=== PATIENT | female | born 1955 | race American Indian/Alaskan Native ===

== ENCOUNTER 2018-05-03 12:58 | Outpatient (CLI) | payer MEDICAID ==
--- NOTE | 2018-05-03 14:54 | Mammography Report ---
LEFT DIGITAL DIAGNOSTIC MAMMOGRAM with CAD and LEFT BREAST ULTRASOUND: 05/03/18 12:58:00 CLINICAL: Left breast cancer status post chemotherapy. COMPARISON:12/03/17 FINDINGS: The breast is mostly fatty with a few scattered fibroglandular densities. The known cancer is an irregular spiculated lower inner mass with the biopsy clip the mass measures approximately 2.0 x 1.5 x 2.1 cm on the mammogram. He scattered benign calcifications.No mass, architectural distortion or suspicious calcifications. Ultrasound of the lower inner left breast was performed and demonstrated an irregular solid hypoechoic mass at 7 o'clock 7 cm from the nipple. It measures approximately 1.2 x 0.9 x 1.4 cm. It is smaller and more isoechoic than on the previous exam. Ultrasound of the left axilla demonstrated no suspicious lymph nodes. IMPRESSION: Known left breast cancer with partial response to chemotherapy. BI-RADS CATEGORY: 6 -- Known Cancer ACR BI-RADS MAMMOGRAPHIC CODES: 0 = Needs additional imaging evaluation; 1 = Negative; 2 = Benign; 3 = Probably benign; 4 = Suspicious; 5 = Malignant; 6 = Known biopsy-proven malignancy COMMENT: 1. Dense breast tissue, i.e., adenosis, fibrocystic changes, etc., may obscure an underlying neoplasm. 2. Approximately 10% of cancers are not detected with mammography. 3. A negative mammography report should not delay biopsy if a clinically suspicious mass is present. COMMENT: Patient follow-up letters are generated by our [employer] application.
== END 2018-05-03 12:59 | disposition home or self-care (01) ==
LOC: SPVWC 12:58
PROVIDERS: ATTEND Surgery
DX: C50.912 Malignant neoplasm of unspecified site of left female breast (principal); E66.9 Obesity, unspecified; Z90.710 Acquired absence of both cervix and uterus

== ENCOUNTER 2018-05-18 06:13 | Day surgery (SDC) | payer MEDICAID ==
[~2018-05-18 06:13] MED LIST: ANCEF/STERILE WATER 2 GM/20 ML 2 GM/20 ML SYRINGE IV NR; LACTATED RINGERS 1,000 ML IV SCH; NEURONTIN PO NR; SUBLIMAZE IV PRN
[2018-05-18] MEDS ORDERED: NACL BACTERIOSTATIC INFILTRATI ONE (06:29)
[2018-05-18] MEDS ORDERED: ZEMURON IV ONE (06:56)
[2018-05-18] MEDS ORDERED: XYLOCAINE MPF 2% ONE (06:56)
[2018-05-18] MEDS ORDERED: SUBLIMAZE ONE ×3 (06:57→11:29)
[2018-05-18] MEDS ORDERED: DIPRIVAN 10 MG/ML IV ONE ×2 (06:57→10:28)
[2018-05-18] MEDS ORDERED: DECADRON ONE ×3 (07:21→13:16)
[2018-05-18] MEDS ORDERED: MARCAINE 0.5% INFILTRATI ONE (07:22)
[2018-05-18] MEDS ORDERED: NACL P/F VIAL (10 ML) 10 ML ONE (07:27)
[2018-05-18] MEDS ORDERED: METHYLENE BLUE ONE (07:27)
[2018-05-18 07:31] LABS: Basophils # (Auto) 0.1 K/mm3 (0.0-0.1); Basophils % (Auto) 1.7 % (0.0-1.8); Eosinophils # (Auto) 0.2 K/mm3 (0.0-0.4); Eosinophils % (Auto) 3.7 % (0.0-4.3); Hematocrit 32.3 % (30.3-42.9); Hemoglobin 10.5 gm/dl (10.1-14.3); Mean Corpuscular HGB Conc 33 % (30-34); Mean Corpuscular Volume 86 fl (79-97); Monocytes # (Auto) 0.7 K/mm3 (0.0-0.8); Monocytes % (Auto) 10.7 % (0.0-7.3); Platelet Count 234 K/mm3 (140-440); Red Blood Count 3.78 M/mm3 (3.65-5.03); Red Cell Distribution Width 19.2 % (13.2-15.2)
[2018-05-18] MEDS ORDERED: XYLOCAINE 1% 20 mL ONE (07:38)
--- NOTE | 2018-05-18 07:45 | Anesthesia Day of Surgery ---
Anesthesia Day of Surgery - Day of Surgery Patient Examined: Yes Patient H&P Reviewed: Yes Patient is NPO: Yes
--- NOTE | 2018-05-18 07:45 | Anesthesia Consultation ---
Anesthesia Consult and Med Hx Date of service: 05/18/18 - Airway Anesthetic Teeth Evaluation: Poor (denies loose teeth) ROM Head & Neck: Adequate Mental/Hyoid Distance: Adequate Mallampati Class: Class I Intubation Access Assessment: Possibly Difficult (previous easy LMA 4) - Pulmonary Exam CTA: Yes - Cardiac Exam Cardiac Exam: RRR - Pre-Operative Health Status ASA Pre-Surgery Classification: ASA3 Proposed Anesthetic Plan: General Nerve Block: PEC - Pulmonary Hx Smoking: No Hx Asthma: No Hx Respiratory Symptoms: No - Cardiovascular System Hx Hypertension: Yes (recent diagnosis; takes HCTZ prn.) Hx Heart Attack/AMI: No Hx Percutaneous Transluminal Coronary Angioplasty (PTCA): No Hx Cardia Arrhythmia: No - Central Nervous System Hx Seizures: No CVA: No Hx Psychiatric Problems: No - Gastrointestinal Hx Gastroesophageal Reflux Disease: No - Endocrine Hx Renal Disease: No Hx Liver Disease: No Hx Insulin Dependent Diabetes: No Hx Non-Insulin Dependent Diabetes: No Hx Thyroid Disease: Yes (s/p thyroidectomy) - Hematic Hx Anemia: Yes - Other Systems Hx Alcohol Use: Yes (SOCIALLY) Hx Substance Use: No Hx Cancer: Yes (L Breast Ca) Hx Obesity: Yes (BMI 57) - Additional Comments Anesthesia Medical History Comments: No hx anesthetic complications. BP elevated in POHA. Will treat prior to surgery. Plan preop PEC block.
[2018-05-18] MEDS ORDERED: XYLOCAINE 1% 20 mL INFILTRATI NR (08:00)
[2018-05-18] MEDS ORDERED: DILAUDID IV PRN (08:00)
[2018-05-18] MEDS ORDERED: NORMODYNE IV PRN (08:00)
[2018-05-18] MEDS: VERSED IV NR ×2 (08:27→08:31)
--- NOTE | 2018-05-18 08:50 | Mammography Report ---
NEEDLE LOCALIZATION AND HOOKWIRE PLACEMENT LEFT BREAST:05/18/18 CLINICAL: Left breast cancer. COMPARISON: 05/03/18 FINDINGS: Using mammographic guidance, 1% lidocaine local anesthesia and sterile technique, a 10-cm Hudson needle with a hookwire was placed from a medial approach to localize a known cancer with a biopsy clip. The hookwire was deployed and the needle was removed. Satisfactory placement was confirmed by orthogonal views. The patient tolerated the procedure well and there were no apparent complications. IMPRESSION: Uncomplicated hookwire placement left breast.
--- NOTE | 2018-05-18 08:51 | Short Stay Summary ---
Short Stay Documentation Date of service: 05/18/18 - History H&P: obtained from office - Allergies and Medications Current Medications: Allergies No Known Allergies Allergy (Verified 05/10/18 17:07) Home Medications Medication Instructions Recorded Confirmed Last Taken Type Acetaminophen [Pain Relief] 500 mg PO Q4H PRN 05/10/18 05/18/18 05/15/18 History Loratadine [Claritin] 10 mg PO DAILY 05/10/18 05/18/18 05/15/18 History Gabapentin [Neurontin] 300 mg PO TID 05/13/18 05/18/18 05/17/18 20:00 History hydroCHLOROthiazide 12.5 mg PO QDAY 05/18/18 05/18/18 05/14/18 History [Hydrochlorothiazide] Active Medications Celecoxib (Celebrex) 200 mg PO PREOP NR Stop: 05/18/18 23:59 Last Admin: 05/18/18 07:49 Dose: 200 mg Documented by: Fentanyl (Sublimaze) 100 mcg IV ONCE PRN PRN Reason: sedation for nerve block Gabapentin (Neurontin) 300 mg PO PREOP NR Stop: 05/18/18 23:59 Last Admin: 05/18/18 07:49 Dose: 300 mg Documented by: Hydromorphone HCl (Dilaudid) 0.5 mg IV Q10MIN PRN PRN Reason: Pain , Severe (7-10) Stop: 05/18/18 16:00 Cefazolin Sodium (Ancef/Sterile Water 2 Gm/20 Ml) 2 gm in 20 mls @ 80 mls/hr IV PREOP NR; Protocol Stop: 05/18/18 23:59 Lactated Ringer's (Lactated Ringers) 1,000 mls @ 100 mls/hr IV DIRECT DONNA Last Admin: 05/18/18 07:50 Dose: 100 mls/hr Documented by: Labetalol HCl (Normodyne) 10 mg IV Q10MIN PRN PRN Reason: Hypertension Stop: 05/18/18 16:00 Lidocaine (Xylocaine 1% 20 Ml) 20 ml INFILTRATI ONCE NR Stop: 05/18/18 14:00 Midazolam HCl (Versed) 2 mg IV PREOP NR Stop: 05/18/18 23:59 - Brief post op/procedure progress note Date of procedure: 05/18/18 Pre-op diagnosis: Left breast cancer of the lower inner quadrant Post-op diagnosis: same Procedure: Left needle localization partial mastectomy and SLNB Anesthesia: GETA Findings: Wire and clip present within radiograph specimen Surgeon: GARIMA ROSADO Estimated blood loss: minimal Pathology: list (left partial mastectomy and SLNB) Specimen disposition: to lab Condition: stable - Disposition Condition at discharge: Good Disposition: DC-01 TO HOME OR SELFCARE Short Stay Discharge Plan Activity: other (no heavy lifting) Diet: regular Wound: keep clean and dry (may shower in 48 hours; no baths; wear breast binder) Follow up with: JAY DANIELS JR, MD [Primary Care Provider] - 7 Days GARIMA ROSADO MD [Staff Physician] - 7 Days Prescriptions: HYDROcodone/APAP 5-325 [[place] 5/325] 1 each PO Q6HR PRN #30 tablet PRN Reason: Pain
--- NOTE | 2018-05-18 08:59 | Operative Report ---
Operative Report Operative Report: May 18, 2018 Preoperative diagnosis: Left breast cancer of the lower inner quadrant Postoperative diagnosis: Same Procedure: Left needle localization partial mastectomy of the lower inner quadrant and SLNB; left inframammary fold skin tag resection Surgeon: Yuni Gonzalez MD Anesthesia: General Findings: Left wire and clip present within radiograph specimen; x 2 SLN Complications: None EBL: Minimal Disposition: PACU in good condition Indications for operative procedure: This is a 62 year old lady with left breast cancer of the lower inner quadrant, Stage II [id number] triple negative around 7:00 position 7 cm from the nipple. She completed neoadjuvant chemotherapy. Recommendations were to proceed with left breast conservation. Radiology localized area of concern. She understands the role of adjuvant radiation therapy. She wished to proceed with the above procedure in addition to left breast skin tag excision. Patient also with right infraclavicular lipoma of at least 12-14 cm-patient wanted resection as well that would be performed by Dr. Owens during breast surgery. Procedure in detail: The patient was taken to radiology for wire placement for localization known area of cancer. Anesthesia placed bilateral pectoral block. Patient was then taken to the operating room. Gen. anesthesia was administered. The left nipple was injected with radioisotope and 1 cc of methylene blue dye with 1 cc of saline. Bilateral breast and axilla were prepped and draped in the normal sterile operative fashion. The wire was identified. Timeout was performed. Gamma probe was inserted into the axilla. The area of hot spot was identified. A left axillary incision was made with a 15 blade knife with dissection taken down to the subcutaneous tissues. The axillary fascia was opened with the Bovie cautery. 2 SLNs were identified. All remaining counts were less than 10% of the highest count. Lymph node was sent to pathology for permanent processing. Hemostasis was obtained in the right axillary cavity. Axillary cavity was appropriately irrigated and suctioned. Hemostasis was noted. Axillary fascia was approximated and closed using interrupted 3-0 Vicryl and the skin brought together and closed using a running 4-0 Monocryl followed by skin affix. Attention was then taken towards the left breast. Inferior breast incision was made with a 15 blade knife and dissection taken down to subcutaneous tissues. First began raising of the superior flap with removal of the wires from the skin with dissection take down to the pectoralis muscle, followed by raising of the inferior flap, medial flap and lateral flap with all flaps taken down to the pectoralis muscle. The breast area of concern was appropriately removed posteriorly from the pectoralis muscle with the aid of the Bovie cautery. The wire was not encountered. Specimen was marked and then sent to pathology and radiology; radiograph specimen with wire and clip present. Breast cavity was irrigated and hemostasis was obtained. The posterior deep breast tissues were approximated and closed using interrupted 3-0 Vicryl. The subcutaneous tissues were approximated and closed using interrupted 3-0 Vicryl followed by closing of the skin with a running 4-0 Monocryl and skin affix. Left breast inframammary fold skin tag was noted of 2 cm that was resected using 15 blade knife and bovie. The subcutaneous tissues were approximated and closed using interrupted 3-0 Vicryl followed by closing of the skin with a running 4-0 Monocryl and skin affix. The patient tolerated surgery very well and she was awaken from anesthesia without any complication and transported to PACU in good condition. Dr. Owens performed right chest wall lipoma resection as well.
[2018-05-18] MEDS ORDERED: NACL P/F VIAL (10 ML) INFILTRATI ONE (09:55)
[2018-05-18] MEDS ORDERED: METHYLENE BLUE IV ONE (09:55)
[2018-05-18] MEDS ORDERED: BLOXIVERZ ONE (10:18)
[2018-05-18] MEDS ORDERED: ROBINUL ONE (10:18)
--- NOTE | 2018-05-18 11:03 | Post Operative Note ---
Date of procedure: 05/18/18 Pre-op diagnosis: large right chest wall soft tissue mass Post-op diagnosis: same Findings: 14cm x 11cm complex soft tissue mass of right upper chest wall Procedure: excision of right chest wall soft tissue mass with complex closure Anesthesia: GETA, other (Block) Surgeon: JIM GARDNER Estimated blood loss: minimal Pathology: list (right chest wall lipoma) Specimen disposition: to lab Condition: stable Disposition: other (in OR for the remainder of Dr. Gonzalez's portion of the case.)
[2018-05-18] MEDS ORDERED: WATER FOR IRRIG STERILE IR ONE (11:24)
--- NOTE | 2018-05-18 12:38 | Mammography Report ---
SPECIMEN RADIOGRAPH LEFT BREAST: 05/18/18 06:13:00 CLINICAL: Surgical excision of a known cancer. FINDINGS: The targeted mass with a biopsy clip and a hookwire are identified within the specimen. IMPRESSION: Excision of the targeted lesion.
--- NOTE | 2018-05-18 14:28 | Post Anesthesia Evaluation ---
- Post Anesthesia Evaluation Patient Participated: Yes Airway Patent: Yes Stable Respiratory Function: Yes Nausea/Vomiting: No Temp > 96.8F: Yes Pain Manageable: Yes Adequeate Hydration: Yes Anesthesia Complications: No
[2018-05-18 14:46] VITALS: BP 152/78
--- NOTE | 2018-05-18 18:38 | Operative Report ---
PREOPERATIVE DIAGNOSIS: Large right chest wall soft tissue mass. POSTOPERATIVE DIAGNOSIS: Large right chest wall soft tissue mass. FINDINGS: A 14 cm x 11 cm complex soft tissue mass of right upper chest wall consistent with lipoma. PROCEDURE: Excision of right chest wall soft tissue mass with complex closure. ANESTHESIA: General endotracheal anesthesia, block. SURGEON: Harriett Owens DO ESTIMATED BLOOD LOSS: Minimal. PATHOLOGY: Right chest wall lipoma. SPECIMEN: Disposition to lab. CONDITION: Stable. DISPOSITION: The patient left the OR in stable condition for the remainder of Dr. Gonzalez's portion of the case. HISTORY OF PRESENT ILLNESS: The patient is a 62-year-old female who presented to the office for evaluation of a large right chest wall lipoma. The patient states she has had this for greater than 10 years and it has not significantly changed in size over the last several years. It is very large and bothersome at times. She is scheduled to undergo a left partial mastectomy with sentinel lymph node dissection with Dr. Gonzalez and was requesting that the mass be removed at the same time. Because the mass is uncomfortable and very large, I recommend excision. I discussed all risks, benefits and alternatives to surgery with the patient. All questions were answered. Consent was obtained. The patient had a recent CT chest performed and this was reviewed prior to surgery. The major blood vessels were not involved or encased by the mass. PROCEDURE IN DETAIL: The patient was identified in the preoperative area and taken back to the operating room and placed on the operating table in supine position. After anesthesia was induced, the right and left chest wall and neck were prepped and draped in the usual sterile fashion and timeout performed. Dr. Gonzalez and I performed our portions of the procedure at the same time. The patient was placed in a head-up position and the mass was localized. A 7 cm transverse incision was made at the center of the mass along Marlene's lines. This was done using a 15 blade. Dissection was carried down through the skin and subcutaneous tissue using Bovie electrocautery until the mass was encountered. The mass was directly below the subcutaneous tissue. The mass was then circumferentially dissected from the surrounding tissue using a combination of blunt dissection and Bovie electrocautery. It was encapsulated and once circumferentially dissected, the base was scarred to the chest wall. The mass was multilobulated and complex appearing. The mass was slowly and carefully from the chest wall. The mass did lay superficial to the muscle. Once the mass was completely transected at the base, it was measured 14 cm x 11 cm. It was passed off table as specimen. The wound was examined and hemostasis achieved using electrocautery and pressure. The wound was irrigated and hemostasis was ensured. There were no major vessels or structures visible. The wound was then closed in a complex fashion. The deep tissues were approximated using 2-0 Vicryl interrupted sutures. The deep dermal layer was closed with 3-0 Vicryl interrupted sutures. The skin was closed with 4-0 Monocryl subcuticular running stitch and skin glue. Once the skin glue was dry, a Telfa dressing was applied over which a 4 x 4 gauze compression dressing was placed and secured with Tegaderm. All sponge, instrument, sharp counts were correct x 2. At the end of this portion of the case the patient was left in stable condition for Dr. Gonzalez to complete her portion of the case. JOB# [id number] BRANDYN/JOSAFAT WINN
== END 2018-05-18 14:42 | disposition home or self-care (01) ==
LOC: OR 06:13
PROVIDERS: ATTEND Surgery
DX: C50.312 Malignant neoplasm of lower-inner quadrant of left female breast (principal); E89.0 Postprocedural hypothyroidism; I10 Essential (primary) hypertension; E66.9 Obesity, unspecified; Z68.43 Body mass index [BMI] 50.0-59.9, adult; Z90.710 Acquired absence of both cervix and uterus; Z72.89 Other problems related to lifestyle; Z79.899 Other long term (current) drug therapy; Z98.890 Other specified postprocedural states; Z80.0 Family history of malignant neoplasm of digestive organs; Z80.3 Family history of malignant neoplasm of breast; Z86.2 Personal history of diseases of the blood and blood-forming organs and certain disorders involving the immune mechanism
CPT/HCPCS: 19281; 19301; 36415; 38525; 38792; 64450; 76098; 78800; 82803; 85025; 87075; 87116; 88304; 88305; 88307; 88341; 88342; A9541; J0690; J1100; J2250; J2704; J2710; J3010; J7120; Q9968; 88333

== ENCOUNTER 2018-08-26 10:41 | Outpatient (CLI) | payer MEDICARE ==
[2018-08-26 11:49] LABS: Hemoglobin 12.7 gm/dl (10.1-14.3); Mean Corpuscular HGB Conc 33 % (30-34); Mean Corpuscular Volume 79 fl (79-97); Platelet Count 211 K/mm3 (140-440); Red Blood Count 4.95 M/mm3 (3.65-5.03)
[2018-08-26 12:23] LABS: Alanine Aminotransferase 8 units/L (7-56); Albumin 3.8 g/dL (3.9-5); BUN/Creatinine Ratio 15; Blood Urea Nitrogen 12 mg/dL (7-17); Calcium 9.2 mg/dL (8.4-10.2); Chol/HDL Ratio 3.35 %; HDL Cholesterol 53 mg/dL (40-59); Hemolysis Index 1; LDL Cholesterol,Direct 118 mg/dL (50-130)
[2018-08-30 13:29] LABS: Vitamin D, 25-OH, D2 10 ng/mL
== END 2018-08-26 10:42 | disposition home or self-care (01) ==
LOC: LAB 10:41
PROVIDERS: ATTEND Internal Medicine
DX: Z13.1 Encounter for screening for diabetes mellitus (principal); E78.5 Hyperlipidemia, unspecified; E55.9 Vitamin D deficiency, unspecified; I10 Essential (primary) hypertension; E66.9 Obesity, unspecified; Z90.710 Acquired absence of both cervix and uterus; R79.89 Other specified abnormal findings of blood chemistry
CPT/HCPCS: 36415; 80053; 80061; 82306; 83036; 85027

== ENCOUNTER 2018-11-08 10:58 | Outpatient (CLI) | payer MEDICAID ==
--- NOTE | 2018-11-08 16:33 | Mammography Report ---
BILATERAL DIGITAL DIAGNOSTIC MAMMOGRAM WITH CAD BILATERAL COMPLETE BREAST ULTRASOUND INDICATION: Breast cancer survivor status post left partial mastectomy. TECHNIQUE: Digital bilateral mammographic imaging was performed. This examination was interpreted wi th the benefit of Computer-Aided Detection (CAD) analysis. COMPARISON: 11/03/2017 FINDINGS: Breast Density: The breasts are almost entirely fatty. A 7.7 cm oval circumscribed mass at the surgical site inferior central left breast. There is no evide nce of other mass, suspicious calcifications or architectural distortion in either breast. Pronounced skin thickening of the left. Ultrasound Findings: Complete sonographic evlauation of all 4 quadrants and retroareolar region was p erformed. The right breast is negative with no mass, cyst or shadowing. An oval fluid collection at 6:00 left breast 5 cm from the nipple measures approximately 6.5 cm and correlates with the mammogra phic mass. It has a few internal echoes and septations. The left breast is otherwise negative. No titus picious lymph nodes in either axilla. IMPRESSION: 1. A benign 7 to 8 cm seroma of the left breast at the surgical site. Benign post radiation skin thic kening of the left breast. 2. Negative right breast. BI-RADS A "normal" or negative report should not discourage follow up or biopsy of a clinically significant f inding. A written summary of these findings will be mailed to the patient. The patient will be entered into a mammography reporting system which will generate a reminder letter for the patient's next appointmen t at the appropriate interval. FURTHER INFORMATION: According to the [employer], yearly mammograms are recommend ed starting at age 40 and continuing as long as a woman is in good health. Breast MRI is recommended for women with an approximately 20-25% or greater lifetime risk of breast cancer, including women wi th a strong family history of breast or ovarian cancer and women who have been treated for Hodgkin's disease. Signer Name: Jersey Saravia MD Signed: 11/08/2018 4:28 PM Workstation Name: [id number]
== END 2018-11-08 10:59 | disposition home or self-care (01) ==
LOC: SPVWC 10:58
PROVIDERS: ATTEND Surgery
DX: N64.89 Other specified disorders of breast (principal); C50.312 Malignant neoplasm of lower-inner quadrant of left female breast; I10 Essential (primary) hypertension; E66.9 Obesity, unspecified; Z90.710 Acquired absence of both cervix and uterus
CPT/HCPCS: 77066

== ENCOUNTER 2018-11-17 09:21 | Outpatient (CLI) | payer MEDICARE ==
--- NOTE | 2018-11-17 11:29 | Ultrasound Report ---
ULTRASOUND-GUIDED NEEDLE ASPIRATION LEFT BREAST CLINICAL: Status post left partial mastectomy with a large seroma. The procedure was explained to the patient and informed consent obtained. PROCEDURE: Using sonographic guidance, 3 mL of 1% lidocaine, and a 18-gauge needle, 100 mL of dark c hocolate fluid was removed from the inferior left breast. Because of its benign appearance, the fluid was discarded. No immediate complications occurred. INTERPRETATION: Uncomplicated successful aspiration of a large seroma of the left breast. Signer Name: Jersey Saravia MD Signed: 11/17/2018 11:25 AM Workstation Name: [id number]
== END 2018-11-17 09:22 | disposition home or self-care (01) ==
LOC: SPVWC 09:21
PROVIDERS: ATTEND Surgery
DX: M96.843 Postprocedural seroma of a musculoskeletal structure following other procedure (principal); Z85.3 Personal history of malignant neoplasm of breast

== ENCOUNTER 2019-01-10 10:54 | Outpatient (CLI) | payer MEDICARE ==
[2019-01-10 12:48] LABS: Chol/HDL Ratio 3.63 %
[2019-01-13 11:18] LABS: Vitamin D, 25-OH, D2 16 ng/mL
== END 2019-01-10 10:55 | disposition home or self-care (01) ==
LOC: LAB 10:54
PROVIDERS: ATTEND Internal Medicine
DX: E78.5 Hyperlipidemia, unspecified (principal); E55.9 Vitamin D deficiency, unspecified; I10 Essential (primary) hypertension; E66.9 Obesity, unspecified; Z85.3 Personal history of malignant neoplasm of breast; Z90.710 Acquired absence of both cervix and uterus
CPT/HCPCS: 36415; 80061; 82306

== ENCOUNTER 2019-01-24 11:52 | Outpatient (CLI) | payer MEDICAID, MEDICARE | END 2019-01-24 11:53 | disposition home or self-care (01) | LOC: LAB 11:52 | PROVIDERS: ATTEND Internal Medicine | DX: Z13.21 Encounter for screening for nutritional disorder (principal); Z13.29 Encounter for screening for other suspected endocrine disorder; E66.9 Obesity, unspecified; I10 Essential (primary) hypertension; Z86.2 Personal history of diseases of the blood and blood-forming organs and certain disorders involving the immune mechanism; Z90.710 Acquired absence of both cervix and uterus | CPT/HCPCS: 36415; 82607; 83036; 84443 ==

== ENCOUNTER 2019-01-31 14:28 | Outpatient (CLI) | payer MEDICARE ==
--- NOTE | 2019-01-31 15:42 | Ultrasound Report ---
ULTRASOUND-GUIDED ASPIRATION LEFT BREAST The procedure was explained to the patient and informed consent obtained. PROCEDURE: Using sonographic guidance, 5 mL of 1% lidocaine, and a 20-gauge needle, 60 mL of clear a mber fluid was removed from the seroma at 10:00 9 cm from the nipple. The 5 cm seroma showed complete collapse. Because of its benign appearance, the fluid was discarded. No immediate complications occu rred. IMPRESSION: Successful and uncomplicated needle aspiration of a left breast seroma. Signer Name: Jersey Saravia MD Signed: 01/31/2019 3:37 PM Workstation Name: [id number]
== END 2019-01-31 14:29 | disposition home or self-care (01) ==
LOC: SPVWC 14:28
PROVIDERS: ATTEND Surgery
DX: N64.89 Other specified disorders of breast (principal); G62.9 Polyneuropathy, unspecified; I10 Essential (primary) hypertension; E66.9 Obesity, unspecified; Z90.710 Acquired absence of both cervix and uterus; Z91.040 Latex allergy status; Z79.899 Other long term (current) drug therapy; Z98.890 Other specified postprocedural states; Z85.3 Personal history of malignant neoplasm of breast; Z72.89 Other problems related to lifestyle; Z80.0 Family history of malignant neoplasm of digestive organs; Z80.3 Family history of malignant neoplasm of breast; Z80.8 Family history of malignant neoplasm of other organs or systems; Z86.2 Personal history of diseases of the blood and blood-forming organs and certain disorders involving the immune mechanism
CPT/HCPCS: 10160; 76942

== ENCOUNTER 2019-04-11 10:21 | Outpatient (CLI) | payer MEDICARE ==
--- NOTE | 2019-04-11 11:14 | Mammography Report ---
DIGITAL DIAGNOSTIC MAMMOGRAM WITH CAD, 04/11/2019 INDICATION: History of left breast cancer status post partial mastectomy. BREAST CANCER TECHNIQUE: Digital left mammographic imaging was performed. Spot compression views were obtained. This examination was interpreted with the benefit of Computer-aided Detection analysis. COMPARISON: 11/08/2018 FINDINGS: Breast Density: There are scattered areas of fibroglandular density. There is no evidence of dominant mass, suspicious calcifications or architectural distortion in the l eft breast. A posterior central seroma measures 6.5 cm. IMPRESSION: A benign 6.5 cm postop seroma. No suspicious finding. Follow up recommendation: Routine yearly BI-RADS Category 2: Benign. A "normal" or negative report should not discourage follow up or biopsy of a clinically significant f inding. A written summary of these findings will be mailed to the patient. The patient will be entered into a mammography reporting system which will generate a reminder letter for the patient's next appointmen t at the appropriate interval. According to the [employer], yearly mammograms are recommended starting at age 40 and continuing as long as a woman is in good health. Breast MRI is recommended for women with an omar roximately 20-25% or greater lifetime risk of breast cancer, including women with a strong family his tory of breast or ovarian cancer and women who have been treated for Hodgkin's disease. Signer Name: Jersey Saravia MD Signed: 04/11/2019 11:10 AM Workstation Name: [id number]
== END 2019-04-11 10:22 | disposition home or self-care (01) ==
LOC: SPVWC 10:21
PROVIDERS: ATTEND Surgery
DX: N64.89 Other specified disorders of breast (principal); Z85.3 Personal history of malignant neoplasm of breast; Z90.12 Acquired absence of left breast and nipple

== ENCOUNTER 2019-05-15 10:40 | Outpatient (CLI) | payer MEDICARE ==
--- NOTE | 2019-05-15 11:50 | XRay Report ---
BILATERAL KNEES AP VIEWS INDICATION: PAIN IN KNEE. COMPARISON: None. IMPRESSION: Normal bone mineralization. No fracture or bone lesion is identified. Moderate to severe medial compartment joint space narrowing is noted in both knees. Mild joint space narrowing in the l ateral compartments. The soft tissues are unremarkable. Signer Name: Yefri Diamond Jr, MD Signed: 05/15/2019 11:46 AM Workstation Name: [id number]
== END 2019-05-15 10:41 | disposition home or self-care (01) ==
LOC: XRAY 10:40
PROVIDERS: ATTEND Orthopaedic Surgery
DX: M25.562 Pain in left knee (principal); M25.561 Pain in right knee
CPT/HCPCS: 73565

== ENCOUNTER 2019-06-01 07:15 | Day surgery (SDC) | payer MEDICARE ==
[2019-06-01] MEDS ORDERED: LIDOCAINE (1%) 10 MG/1 ML VIAL 20 ML MDV ONE (07:56)
[2019-06-01] MEDS ORDERED: BUPIVACAINE/PF (0.5%) 5 MG/1 ML 30 ML VIAL INFILTRATI ONE ×2 (07:56→11:27)
[2019-06-01] MEDS ORDERED: LIDOCAINE (1%) 10 MG/1 ML VIAL 20 ML MDV INFILTRATI ONE (11:16)
--- NOTE | 2019-06-01 12:28 | Fluoroscopy Report ---
Fluoroscopy guidance needle placement HISTORY: Chronic left knee pain FINDINGS: 36 seconds of fluoroscopy time was provided by radiology during left knee geniculate nerve block by the orthopedic surgeon. 2 fluoroscopic images of the left knee are presented demonstrating n eedle placement on both sides of the distal femur and medial side of the proximal tibia. There are se natalia tricompartmental osteoarthritic changes in the left knee. Please correlate with the procedural r eport by Dr. Moreau as needed. Signer Name: Yefri Diamond Jr, MD Signed: 06/01/2019 12:23 PM Workstation Name: [id number]
[2019-06-01 12:50] VITALS: BP 132/80
--- NOTE | 2019-06-01 14:06 | Procedure Note ---
Date of procedure: 06/01/19 Pre-op diagnosis: Left knee pain Post-op diagnosis: same Procedure: [Left] Geniculate Nerve Block under C-arm fluroscopy procedure The patient taken to the operating room where he was place on the table supine with padded triangular pad placed along the potileal fossa. The [left] knee prepped and draped in usual sterile fashion. 22-gauge spinal needle used to locate areas for injection, the medial and lateral supracondylar ridges, 2 cm proximal to the superior pole of the patella as well as the medial border of the proximal tibia. These areas were anesthized using lidocaine 1% followed by placement of spinal needle near the medial, and lateral geniculate nerves. A mixture of marcaine and lidocaine injected into the deeper structures. There were no complications noted and he tolerated well. Anesthesia: local Surgeon: HALIE ALFARO Estimated blood loss: minimal Pathology: none Condition: stable Disposition: observation
== END 2019-06-01 07:16 | disposition home or self-care (01) ==
LOC: OR 07:15
PROVIDERS: ATTEND Orthopaedic Surgery
DX: M25.562 Pain in left knee (principal); M17.0 Bilateral primary osteoarthritis of knee; I10 Essential (primary) hypertension; E66.9 Obesity, unspecified; E89.0 Postprocedural hypothyroidism; D64.9 Anemia, unspecified; Z91.041 Radiographic dye allergy status; Z79.899 Other long term (current) drug therapy; Z68.43 Body mass index [BMI] 50.0-59.9, adult; Z90.12 Acquired absence of left breast and nipple; Z85.3 Personal history of malignant neoplasm of breast; Z90.710 Acquired absence of both cervix and uterus; Z72.89 Other problems related to lifestyle; Z98.890 Other specified postprocedural states; Z91.81 History of falling; Z80.3 Family history of malignant neoplasm of breast; Z80.0 Family history of malignant neoplasm of digestive organs; Z80.41 Family history of malignant neoplasm of ovary
CPT/HCPCS: 77002

== ENCOUNTER 2019-11-14 10:35 | Outpatient (CLI) | payer MEDICARE ==
--- NOTE | 2019-11-14 11:55 | Mammography Report ---
DIGITAL SCREENING MAMMOGRAM WITH CAD, 11/14/2019 INDICATION: Routine screening mammography. SCREENING MAMMOGRAM TECHNIQUE: Digital bilateral 2D mammography was obtained in the craniocaudal and mediolateral obliq ue projections. This examination was interpreted with the benefit of Computer-Aided Detection analysi s. COMPARISON: 11/08/18. FINDINGS: Breast Density: There are scattered areas of fibroglandular density. There is no evidence of dominant mass, suspicious calcifications or architectural distortion in the r ight breast. Post lumpectomy/radiation changes in the left breast inferomedially are again identified and are slightly smaller. There are a few benign-appearing calcifications in the left breast which a re unchanged. No new abnormality is seen. IMPRESSION: No mammographic evidence of malignancy or significant change. Follow up recommendation: Routine yearly BI-RADS Category 2: Benign. A "normal" or negative report should not discourage follow up or biopsy of a clinically significant f inding. A written summary of these findings will be mailed to the patient. The patient will be entered into a mammography reporting system which will generate a reminder letter for the patient's next appointmen t at the appropriate interval. The [employer] recommends yearly mammograms starting at age 40 and continuing as l valdez as a woman is in good health. Breast MRI is recommended for women with an approximate 20-25% or greater lifetime risk of breast cancer, including women with a strong family history of breast or ova jill cancer or who have been treated for Hodgkin's disease. Signer Name: Francisco Brizuela MD Signed: 11/14/2019 11:51 AM Workstation Name: [id number]
== END 2019-11-14 10:36 | disposition home or self-care (01) ==
LOC: SPVWC 10:35
PROVIDERS: ATTEND Surgery
DX: Z12.31 Encounter for screening mammogram for malignant neoplasm of breast (principal)
CPT/HCPCS: 77067

== ENCOUNTER 2020-02-13 14:03 | Outpatient (CLI) | payer MEDICARE ==
--- NOTE | 2020-02-13 15:42 | Ultrasound Report ---
ULTRASOUND-GUIDED LEFT BREAST ASPIRATION INDICATION: History of lumpectomy in 2019 with recurrent seroma and subsequent multiple percutaneous drainages COMPARISON: Ultrasound-guided left aspiration images 10/04/2019, bilateral mammography 11/14/2019 CONSENT: Procedure was discussed at length in advance with the patient. Possible risks and benefits w ere discussed including the possibility of bleeding. Opportunity for questions was provided. Patient is not on anticoagulant therapy and reports no pertinent allergies. PROCEDURE: Timeout was performed. The recurrent seroma at the surgical site was localized sonographic ally. Using aseptic technique and under local anesthesia, with real-time sonographic guidance, the ar ea of interest was aspirated using a 22-gauge spinal needle. Approximately 65 cc of clear yellowish f luid was withdrawn and discarded. At the end of the procedure only minimal fluid remained. Site was s ecured. Patient tolerated the procedure well and left the department in good condition. IMPRESSION: Successful ultrasound-guided left breast aspiration Signer Name: Smooth Monahan MD Signed: 02/13/2020 3:37 PM Workstation Name: [id number]
== END 2020-02-13 14:04 | disposition home or self-care (01) ==
LOC: SPVWC 14:03
PROVIDERS: ATTEND Surgery
DX: N64.89 Other specified disorders of breast (principal); G62.9 Polyneuropathy, unspecified; I10 Essential (primary) hypertension; E66.9 Obesity, unspecified; E89.0 Postprocedural hypothyroidism; D64.9 Anemia, unspecified; Z91.81 History of falling; Z91.040 Latex allergy status; Z79.899 Other long term (current) drug therapy; Z85.3 Personal history of malignant neoplasm of breast; Z90.12 Acquired absence of left breast and nipple; Z90.710 Acquired absence of both cervix and uterus; Z79.82 Long term (current) use of aspirin; Z98.890 Other specified postprocedural states; Z80.0 Family history of malignant neoplasm of digestive organs; Z80.3 Family history of malignant neoplasm of breast; Z80.41 Family history of malignant neoplasm of ovary

== ENCOUNTER 2020-06-11 10:54 | Outpatient (CLI) | payer MEDICARE ==
--- NOTE | 2020-06-11 11:48 | Mammography Report ---
DIGITAL DIAGNOSTIC MAMMOGRAM WITH CAD , 06/11/2020 CLINICAL INFORMATION / INDICATION: PERSONAL HX OF BREAST CA Z85.3 TECHNIQUE: Digital left mammographic imaging was performed. This examination was interpreted with the benefit of Computer-aided Detection analysis. COMPARISON: 11/14/2019, 11/08/2018 FINDINGS: Breast Density: There are scattered areas of fibroglandular density. No dominant mass, suspicious calcifications or architectural distortion in the left breast. Postlumpe ctomy and radiation changes again noted in the left breast. There are a few benign calcifications in the lateral left breast unchanged. Overall, no significant interval change in the appearance of the m ammogram. IMPRESSION: No mammographic evidence of malignancy. Follow up recommendation: Resumption of annual screening mammography in 6 months. BI-RADS Category 2: Benign. A "normal" or negative report should not discourage follow up or biopsy of a clinically significant f inding. A written summary of these findings will be mailed to the patient. The patient will be entered into a mammography reporting system which will generate a reminder letter for the patient's next appointmen t at the appropriate interval. According to the [employer], yearly mammograms are recommended starting at age 40 and continuing as long as a woman is in good health. Breast MRI is recommended for women with an omar roximately 20-25% or greater lifetime risk of breast cancer, including women with a strong family his tory of breast or ovarian cancer and women who have been treated for Hodgkin's disease. Signer Name: Nereida Cheek MD Signed: 06/11/2020 11:44 AM Workstation Name: [employer]
== END 2020-06-11 10:55 | disposition home or self-care (01) ==
LOC: SPVWC 10:54
PROVIDERS: ATTEND Surgery
DX: R92.1 Mammographic calcification found on diagnostic imaging of breast (principal); Z85.3 Personal history of malignant neoplasm of breast

== ENCOUNTER 2020-10-22 09:54 | Outpatient (CLI) | payer MEDICARE ==
--- NOTE | 2020-10-22 11:48 | Mammography Report ---
LEFT DIAGNOSTIC MAMMOGRAM INDICATION: Status post left breast 6:00 aspiration and core biopsy. COMPARISON: 06/11/2020, 02/13/2020. FINDINGS: Left breast CC and ML projection mammograms were obtained. These document accurate location of a U-shaped biopsy marker at site of recent ultrasound-guided aspiration and core biopsy. Previous ly noted seroma at this site has resolved. IMPRESSION: Left breast mammographic images documenting accurate location of a U-shaped biopsy marker at site of recent ultrasound-guided fine-needle aspiration and core biopsy. BI-RADS Category 4: Suspicious for Malignancy. Signer Name: Mina Palacios MD Signed: 10/22/2020 11:43 AM Workstation Name: [id number]
--- NOTE | 2020-10-22 12:05 | Ultrasound Report ---
ULTRASOUND-GUIDED ASPIRATION AND CORE NEEDLE BIOPSY Left BREAST WITH CLIP PLACEMENT INDICATION: Recurrent left breast 6:00 fluid collection at site of prior surgery. FINDINGS: Informed consent was obtained. The fluid collection within the left breast at the 6:00 position was i dentified with ultrasound. The overlying skin was cleansed with chloro prep and local anesthesia was obtained with a 1% lidocaine solution. Under ultrasound guidance a 18-gauge needle was advanced into the collection and aspiration was performed. This resulted in 65 mL of cloudy yellow fluid. Upon aspi ration, ill-defined hypoechoic tissue was noted at the collapsed fluid collection site. It was felt t hat ultrasound-guided core biopsy may be beneficial. Under ultrasound guidance a 14-gauge spring load ed core biopsy needle was advanced to the lesion. A total of 4 core samples were obtained. A U-shaped biopsy marker was placed to alyson the site of the biopsy. Core samples were sent in formalin to patho logy and a sample of the aspirate was sent for analysis. Patient tolerated the procedure well and no immediate complications were identified. A post procedure mammogram demonstrates accurate placement of the biopsy marker. IMPRESSION: 1. Technically successful ultrasound-guided aspiration of left breast 6:00 fluid collection with rem oval of 65 mL of cloudy yellow fluid. A sample sent for analysis. 2. Technically successful ultrasound guided core biopsy of residual hypoechoic tissue surrounding th e collapsed fluid collection. A U-shaped biopsy marker was placed to alyson this site. An addendum will be added to this report once pathology results are available. Signer Name: Mina Palacios MD Signed: 10/22/2020 12:00 PM Workstation Name: [id number]
== END 2020-10-22 09:55 | disposition home or self-care (01) ==
LOC: SPVWC 09:54
PROVIDERS: ATTEND Surgery
DX: N64.89 Other specified disorders of breast (principal); R92.8 Other abnormal and inconclusive findings on diagnostic imaging of breast; I10 Essential (primary) hypertension; E66.9 Obesity, unspecified; Z85.3 Personal history of malignant neoplasm of breast; Z90.710 Acquired absence of both cervix and uterus; Z98.890 Other specified postprocedural states; Z79.899 Other long term (current) drug therapy; Z91.040 Latex allergy status
CPT/HCPCS: 88112; 88305

== ENCOUNTER 2020-11-27 11:14 | Outpatient (CLI) | payer MEDICARE ==
--- NOTE | 2020-11-28 10:19 | Mammography Report ---
DIGITAL SCREENING MAMMOGRAM WITH CAD, 11/27/2020 CLINICAL INFORMATION / INDICATION: Routine screening mammography. Personal history of breast cancer o n the left TECHNIQUE: Digital bilateral 2D mammography was obtained in the craniocaudal and mediolateral obliqu e projections. This examination was interpreted with the benefit of Computer-Aided Detection analysis . COMPARISON: 11/14/2019, 06/11/2020 FINDINGS: Breast Density: There are scattered areas of fibroglandular density. No dominant mass, suspicious calcifications, or architectural distortion in the right breast. Postlumpectomy changes are noted on the left. IMPRESSION: No mammographic evidence of malignancy. Follow up recommendation: Routine yearly BI-RADS Category 2: Benign. A "normal" or negative report should not discourage follow up or biopsy of a clinically significant f inding. A written summary of these findings will be mailed to the patient. The patient will be entered into a mammography reporting system which will generate a reminder letter for the patient's next appointmen t at the appropriate interval. The [employer] recommends yearly mammograms starting at age 40 and continuing as l valdez as a woman is in good health. Breast MRI is recommended for women with an approximate 20-25% or greater lifetime risk of breast cancer, including women with a strong family history of breast or ova jill cancer or who have been treated for Hodgkin's disease. Signer Name: Miah Aguero MD Signed: 11/28/2020 10:15 AM Workstation Name: [id number]
== END 2020-11-27 11:15 | disposition home or self-care (01) ==
LOC: SPVWC 11:14
PROVIDERS: ATTEND Surgery
DX: Z12.31 Encounter for screening mammogram for malignant neoplasm of breast (principal)
CPT/HCPCS: 77067